=== PATIENT | male | born 1935 | race Caucasian/White ===

== ENCOUNTER 2019-06-19 07:32 | Inpatient (IN) | payer MEDICARE ==
[~2019-06-19] VITALS: Ht 175.3 cm; Wt 74.0 kg
[2019-06-19 07:53] LABS: BASOPHILS ABSOLUTE AUTO 0.05 K/mm3 (0.00-0.23); BASOPHILS PERCENT AUTO 1 % (0-2); EOSINOPHILS ABSOLUTE AUTO 0.28 K/mm3 (0.00-0.68); EOSINOPHILS PERCENT AUTO 4 % (0-6); Hematocrit 44.8 % (37.0-53.0); Hemoglobin 15.4 g/dL (13.5-17.5); IMMATURE GRAN ABSOLUTE AUTO 0.01 K/mm3 (0.00-0.10); IMMATURE GRAN PERCENT AUTO 0 % (0-1); LYMPHOCYTES ABSOLUTE AUTO 2.86 K/mm3 (0.84-5.20); LYMPHOCYTES PERCENT AUTO 38 % (21-46); MONOCYTES ABSOLUTE AUTO 0.56 K/mm3 (0.16-1.47); MONOCYTES PERCENT AUTO 7 % (4-13); Mean Corpuscular HGB 32.8 pg (26.0-34.0); Mean Corpuscular HGB Conc 34.4 g/dL (31.5-36.5); Mean Corpuscular Volume 96 fL (80-100); Mean Platelet Volume 9.9 fL (9.1-12.4); NEUTROPHILS ABSOLUTE AUTO 3.83 K/mm3 (1.96-9.15); NEUTROPHILS PERCENT AUTO 50 % (41-73); Platelet Count 202 K/mm3 (150-400); RDW Coefficient Variation 13.2 % (11.7-14.2); RDW Standard Deviation 46.5 fL (35.1-46.3); Red Blood Cell Count 4.69 M/mm3 (4.30-5.90); White Blood Cell Count 7.59 K/mm3 (4.00-11.30)
[2019-06-19] MEDS ORDERED: SINEMET 25-1001 EACH PO (07:59)
[2019-06-19] MEDS ORDERED: CEPH500 (08:00)
[2019-06-19] MEDS ORDERED: FINA5 (08:00)
[2019-06-19] MEDS ORDERED: CALCIUM 600 +1 EA11 (08:00)
[2019-06-19] MEDS ORDERED: Prinivil10 MG PO (08:00)
[2019-06-19 08:08] LABS: Alanine Aminotransfer (ALT/SGP 9 U/L (12-78); Albumin, Blood 3.8 g/dL (3.4-5.0); Albumin/Globulin Ratio 0.9 (0.8-1.8); Alk Phos 72 U/L (50-136); Anion Gap 9 mmol/L (6-16); Aspartate Aminotrans (AST/SGOT 30 U/L (12-37); Blood Urea Nitrogen 19 mg/dL (8-24); Bun/Creatinine Ratio 16.2 (12.0-20.0); CO2, Blood 25 mmol/L (21-32); CPK Creatine Kinase 62 U/L (39-308); Calcium, Blood 8.9 mg/dL (8.5-10.1); Chloride, Blood 104 mmol/L (98-108); Creatine Kinase MB 1.1 ng/mL (0.0-3.6); Creatine Kinase MB Index 1.8 (0.0-4.0); Creatinine, Blood 1.17 mg/dL (0.60-1.20); Globulin, Blood 4.3 g/dL (2.2-4.0); Glomerular Filtration Rate >60 (60-); Glucose, Blood 92 mg/dL (70-99); Potassium, Blood 3.4 mmol/L (3.5-5.5); Sodium, Blood 138 mmol/L (136-145); Total Protein, Blood 8.1 g/dL (6.4-8.2); Troponin I 0.017 ng/mL (0.000-0.040)
[2019-06-19 08:32] LABS: Source, Urine Clean Catch
[2019-06-19 08:44] LABS: Bilirubin, Urine Neg (Neg); Blood, Urine Neg (Neg); Glucose Qualitative, Urine Neg (Neg); Ketones, Urine Neg (Neg); Leukocyte Esterase, Urine 3+ (Neg); Nitrite, Urine Neg (Neg); Protein, Urine 2+ (Neg); Urobilinogen, Urine NORM (Normal)
[2019-06-19 09:03] LABS: Appearance, Urine Clear (Clear); Color, Urine Yellow (P-Yellow)
[2019-06-19 09:04] LABS: White Blood Cells, Urine TNTC /hpf (0-5)
[2019-06-19 09:05] LABS: Bacteria Many /hpf; Red Blood Cells, Urine Not Seen /hpf (0-2); Squamous Epithelial Cells Few /hpf (Few)
--- NOTE | 2019-06-19 11:25 | NUR ---
PATIENT ARRIVED TO ROOM PCU 12 VIA STRETCHER FROM ER AFTER THIS RN RECEIVED TELEPHONE REPORT FROM MIO RN, ER, MOVED FROM STRETCHER TO BED VIA SLIDER, PATIENT IS ACCOMPANIED BY , PATIENT HAS PARKINSONS DISEASE AND IS NOT ABLE TO MOVE UPPER AND LOWER EXTREMITIES, IS PRIMARY CAREGIVER AT THIS TIME, PATIENT WAS PLACED ON TELEMETRY, VSS, IV MAINTENANCE FLUIDS STARTED, PATIENT ALSO TOOK ORAL MEDICATION WELL WITH APPLESAUCE, SPEECH THERAPY IN TO DO SWALLOW EVALUATION, SPECIFIC INSTRUCTIONS POSTED ON WHITEBOARD IN ROOM, PATIENT IS ALERT AND ORIENTED AND ABLE TO FOLLOW INSTRUCTIONS AND ANSWER QUESTIONS APPROPRIATELY, BUT REPLIES ARE SLOW, LUNG SOUNDS CLEAR IN UPPER LOBES AND DIMINISHED IN LOWER AREAS, UPON ARRIVAL PATIENT'S HR WAS IN 30'S, REPORTS NORMAL HEART RATE IS IN 60'S, PATIENT AND WERE ORIENTED TO ROOM AND NEW ENVIRONMENT, PATIENT RECEIVED SPECIAL CALL LIGHT, GIVEN AND EXPLAINED, BOTH VERBALIZED UNDERSTANDING, CALL LIGHT IN REACH, WILL CONTINUE TO MONITOR.
--- NOTE | 2019-06-19 17:50 | NUR ---
SHIFT SUMMARY NOTE: NO ACUTE EVENTS DURING THIS SHIFT, PATIENT MOSTLY SLEEPING, AT BEDSIDE, PATIENT IS A FEEDER D/T PARKINSONS, SCD'S IN PLACE, FOR DETAILS SEE ADMISSION ASSESSMENT AND NURSES NOTES, CALL LIGHT IN REACH, WILL CONTINUE TO MONITOR AND GIVE REPORT TO ONCOMING NOC SHIFT.
--- NOTE | 2019-06-19 18:05 | NUR ---
SPECIAL ORDER JEWELER CALLED TO NOTIFY THIS RN THAT PATIENT IS IN SVT WITH HR OF 220'S, DR. KOWALSKI CALLED, ADENOSINE AND EKG ORDER OBTAINED, PATIENT WAS ABLE TO FOLLOW COMMAND TO BEAR DOWN AND CONVERTED BACK TO SINUS BRADYCARDIA IN 40'S-50'S, WILL CONTINUE TO MONITOR.
--- NOTE | 2019-06-19 23:08 | NUR ---
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 PATIENT ASYMPTOMATIC.
--- NOTE | 2019-06-20 | NUR ---
NOTIFIED DR. CRAWFORD OF PATIENT SECOND DEGREE TYPE ONE BLOCK. NO CARDIALOGY CONSULT AT THIS TIME. DOCTOR WILL ALLOW ROUNDING HOSPITIALIST TO DETERMINE IF NEEDED. NO ORDERS AT THIS TIME.
--- NOTE | 2019-06-20 05:45 | NUR ---
PATIENT SBP ABOVE 200. PATIENT WAS WANTING TO GET UP TO BATHROOM FOR BM AT 4 AM AND SBP ELEVATE >200. GOTTEN UP TO BATHROOM AND TAKEN BP AGAIN. PATIENT SBP CONTINUES TO BE ELEVATED. PATIENT WAS USTEADY ON FEET TO THE COMMODE TWO PERSON ASSIST. CALLED DR. WAGONER TO REPORT SBP. TAKEN ORDER FOR HYDRALIZINE 10MG Q6H PRN FOR SBP >160. NO FURTHER ORDERS TAKEN.
--- NOTE | 2019-06-20 06:36 | NUR ---
PATIENT HAS NOT SLEPT MUCH TONIGHT. PATIENT AT BEDSIDE AND ABLE TO USE CALL LIGHT FOR PATIENT. PATIENT HAS NOT BEEN ABLE TO USE WITHOUT ASSISTANCE THROUGH OUT THE NIGHT. PATIENT HAS BEEN SLIGHTLY ANXIOUS THIS MORNING, REPOSITIONED EVERY 2 HRS WITH PILLOWS FOR COMFORT.
--- NOTE | 2019-06-20 06:38 | NUR ---
PATIENT HAS ALSO HAD I&O CATH THROUGH OUT THE NIGHT.
--- NOTE | 2019-06-20 08:12 | NUR ---
NURSING PCU DAYSHIFT: Assumed care of pt at approx 0700. Alert, oriented to self and family only, able to follow small commands. Speech is slow though able to answer simple questions and engage in basic conversation. General weakness noted and tremors of UE's d/t hx of parkinsons, requires assistance for repositioning and ADL's. Tele in place, NSR w/first degree, no c/o CP/pressure, HTN prior to a.m. meds, no noted edema. L/S cta t/o w/dim bases, O2 sat upper 90's on RA, no noted cough. Abd moderately distended and firm which spouse states is normal, BT hyperactive, chronic urinary retention which requires I/O cath. PIV x1, NS infusing at 75cc/hr. No s/s of acute distress at this time. Spouse at bedside assisting pt w/thin liquids from cup. Addressed ST evaluation from previous day and educated on potential risk of not following ST recommendations. Spouse did not agree with evaluation, informed spouse and pt that ST would be contacted to meet in room in order to discuss spouse concerns, spouse verbalized understanding. PMD at bedside this a.m., new d/o received. Soft touch call light in reach, cont to monitor for any changes.
[2019-06-20 08:44] LABS: Anion Gap 7 mmol/L (6-16); Blood Urea Nitrogen 20 mg/dL (8-24); CO2, Blood 27 mmol/L (21-32); Calcium, Blood 8.9 mg/dL (8.5-10.1); Chloride, Blood 106 mmol/L (98-108); Creatinine, Blood 1.11 mg/dL (0.60-1.20); Glomerular Filtration Rate >60 (60-); Glucose, Blood 81 mg/dL (70-99); Magnesium, Blood 2.8 mg/dL (1.6-2.4); Potassium, Blood 3.6 mmol/L (3.5-5.5); Sodium, Blood 140 mmol/L (136-145)
--- NOTE | 2019-06-20 10:33 | NUR ---
Patient is lying in bed and alert with Patient's spouse, Akanksha, bedside. Akanksha explains about patient's medical issues both past and present. She also tells about the family unit complications, their eddie journey and the peace they both have about patient "going to [facility]." I listen empathically, provide a Bible, quote inspirational Bible verses and provide pastoral automobile travel club counselor, companionship and prayer. Patient and Akanksha respond well and display evidence of a refreshed eddie and hope. Akanksha voices gratitude for my visit. I will continue to be available to patient and family.
--- NOTE | 2019-06-20 12:54 | NUR ---
Initial Visit: Palliative Care for Advanced Care Planning. Pt is A&Ox1 and appears comfortable at this time. When asked about pain Pt engages in nonsensical conversation. No S/S of distress at this time. Pt's Akanksha is present during visit. Engaged in therapeutic discussion regarding advanced care planning. Akanksha reports Pt lives at home with her and is his primary caregiver. Akanksha reports Pt is chair bound and on occasion Pt can ambulate a short distance by shuffling his feet. Akanksha reports Pt is a one person transfer. Pt requires assistance with bathing, dressing, and feeding. Akanksha inserts catheters to drain Pt's bladder. Attempted to educate Akanksha on disease process and trajectory. Akanksha states "I know all obout the process and I keep in touch with the DC nurse in [place]". Akanksha reports the plan is for Pt to discharge to the DC where he will gain enough strength to come home. Akanksha's level of understanding is questionable. Education re-enforcement of disease process and discharge plan will be needed. Discussed case with bedside nurse Mignon prior to visit and she expressed concerns with Wifes understanding as well. Will collaborate with raw material planner of concerns. Palliative Care will remain available.
--- NOTE | 2019-06-20 14:30 | NUR ---
Late Entry from previous Initial Visit note. Also discussed hospice as an option for end of life care. Pt's Akanksha states "He is not ready yet".
--- NOTE | 2019-06-20 15:56 | NUR ---
Received report from palliative care truck engine technician Johanna that after visiting with Pt and family hospice has been chosen. Arrived to Pt's room and he is resting in bed with his eyes closed. Pt appears comfortable with no S/S of distress at this time. Engaged in discusion regarding decision for hospice. Akanksha confirms goals are hospice. Provided choices of hospice agencies and Akanksha choosed [facility]. Discussed equipment that will need to be provided. Akanksha reports no other concerns at this time. Spoke with resident care spec Farrah and reported choice of hospice agency. Reported need for hospital bed, bedside table, and bedside commode. Palliative Care will remain available.
--- NOTE | 2019-06-20 16:03 | NUR ---
Late Entry PPS 30% Karnofsky 30% FAST score 7C ADL's 03/21
--- NOTE | 2019-06-20 16:45 | NUR ---
Spiritual Care intital note: Aske by Palliative Care RN to meet with spouse to increase her understanding of pt's dx. Failitated conversation @ her understanding of Cliff' disease process and provided gentle education according to PC. Akanksha agreed that pt is nearing end-of-life and states that he wants to be home when he passes. She had some concerns about physically caring for Cliff as he grows weaker. Advised she rally family for physical and emotional support. Also educated about hospice services/support. Akanksha and I had an easy rapport and she hugged me at conclusion of visit. She was tearful, but reported peace with POC. This couple's eddie provides peace with . I will remain available.
--- NOTE | 2019-06-20 17:29 | NUR ---
NURSING PCU DAYSHIFT SUMMARY: Spouse at bedside t/o majority of shift. ST met w/pt and s/o this a.m., provided additional education regarding swallow precautions, spouse verbalized and demonstrated understanding. Care management, palliative care, and pastoral care at bedside several times t/o shift to discuss plan of care w/spouse and pt. Determined that pt would like to be discharged home on hospice once acute medical needs are addressed. Spouse left for home this afternoon to shower and take care of personal needs. Pt became anxious once spouse left room. This RN sat at bedside for approx 30-45 min as pt became more irritated. Asked, "Where is my " while pulling at lines and tubing. Attempted to redirect pt and provide reassurance. Pt became agitated and attempted to harm this RN, staff assist called. Within an hour pt calmed and became tearful, apologizing for behavior. Discussed pt's changes w/spouse once she returned to bedside. No s/s of acute distress at this time. Pt appears to be resting comfortably while s/o is assisting w/supper. Call light remains in reach of spouse w/soft touch call system in reach of pt. Pt and spouse deny any current needs, cont to monitor until rpt is given to NOC RN.
[2019-06-21 04:09] LABS: Anion Gap 7 mmol/L (6-16); Blood Urea Nitrogen 17 mg/dL (8-24); Bun/Creatinine Ratio 17.5 (12.0-20.0); CO2, Blood 26 mmol/L (21-32); Calcium, Blood 9.1 mg/dL (8.5-10.1); Chloride, Blood 106 mmol/L (98-108); Creatinine, Blood 0.97 mg/dL (0.60-1.20); Glomerular Filtration Rate >60 (60-); Glucose, Blood 108 mg/dL (70-99); Potassium, Blood 3.7 mmol/L (3.5-5.5); Sodium, Blood 139 mmol/L (136-145)
--- NOTE | 2019-06-21 04:27 | NUR ---
PCU NOC SHIFT SUMMARY PATIENT REMAIN STONE FACE WITH NO TRACKING FOR THE MAJORITY OF THE SHIFT. PATIENT MOSTLY NONE VERBAL WITH OCCASSIONALLY ANSWERING QUESTIONS AT RANDOM. PATIENT REMAINED ON ROOM AIR T/O THE SHIFT IN SINUS TO SINUS MONTY WITH A FIRST DEGREE - CURRENTLY AT 70 BEATS PER MINUTE. PATIENT MEDICATED PER WIFES REQUEST AND VERBALIZING WANTING PAIN MEDICATIONS - BUT SOURCE OF DISCOMFORT IS UNKNOWN. PATIENTS ABD REMAINS DISTENDED. PATIENT HAD A LOOSE BOWEL MOVEMENT THIS SHIFT. NO FURTHER ACUTE CHANGES NOTED. WILL CONTINUE TO MONITOR AND REPORT TO PRIMARY RN.
--- NOTE | 2019-06-21 08:00 | NUR ---
pt laying in bed awake, very flat affect, he is cooperative with care, follows commands as best he can in room, he answers yes/no, otherwise is quiet, he denies pain, lungs are clear t/o, resp even and unlabored, no cough noted, hrr, tele in place running sr with 1st degree, and periodically goes into [facility] per general maintenance technician, see strip, no edema noted, ppp+1, cap refill <3 sec, vs stable, afebrile, iv site to right fa, site is clear and patent, btx4, abd round somewhat firm, is having loose stools, attends in place, takes po meds whole in applesauce,armstrong cath in place draining yellow urine, skin has a area to right buttock that is looking irritated, placed a dressing for protection, has a tremor off and on, is very stiff, states he can get up to chair with two person to assist, devika, soft touch call light in reach.
--- NOTE | 2019-06-21 10:54 | NUR ---
Pt visit this AM. Pt is resting in bed with his eyes closed. He appears comfortable with no S/S of distress at this time. Pt's Iris and many other family members present during visit. Discussed discharge plan and requests for staff to get Pt out of bed today to help her determine if she will be able to get him out of bed at home. Akanksha reports no other concerns. Spoke with bedside nurse Brett and discussed case. Relayed 's request for Pt getting out of bed. Brett reports an order for PT would be beneficial to help determine appropriateness and safety education from PT. Brett also expresses concerns regarding Akanksha's ability to care for Pt as disease process takes its coarse. Spoke with [facility] Phoebe and discussed case. Relayed bedside nurse's concerns. Phoebe reports [facility] and [facility]. Called and spoke with Dr Beyer and relayed request for PT to evaluate and educate family on mobility safety. Dr Beyer will place PT order. Palliative Care will remain available.
--- NOTE | 2019-06-21 12:58 | NUR ---
PT SLEPT MOST OF THE MORNING, LOTS OF FAMILY IN TO SEE HIM. WILL BE DISCHARGED TODAY AFTER PT WORKS WITH HIM. CALL LIGHT IN REACH.
--- NOTE | 2019-06-21 18:21 | NUR ---
Lyly.Berta. WORKED WITH PT TODAY AND FELT THAT PT WILL NEED MORE HELP THAN HIS IS CAPABLE OF FOR TRANSFERING, SPOKE WITH AND SHE IS ADAMANT THAT SHE IS CAPABLE OF CARING FOR HIM BY HERSELF AND THEY WILL MANAGE. SHE EXPLAINED HER PLAN, AND IS CONVINCED THAT HE WILL BE BETTER TOMORROW AND SHE CAN TRANSFER HIM. EXPRESSED MY CONCERN THAT HE ISN'T FUNCTIONAL HE WAS BEFORE HE WAS BROUGHT IN TO HOSP AND WILL BE HEAVIER TO TRANSFER, AND SHE HAS POTENTIAL OF HURTING HERSELF AND HIM IF HE FALLS. SHE BELIEVES THIS WILL NOT HAPPEN AND IF IT DOES SHE BELIEVES THAT SHE WILL BE ASSISTED BY HER MERE. GRAND DAUGHTER IN ROOM WITH THIS CONVERSATION. HER SON CAME IN TO SEE HIM, BRIEFLY SPOKE WITH HIM ABOUT CONCERNS, HE STATES THE FAMILY IS CONCERNED WELL, AND IS WILLING TO COME IN TOMORROW WHEN P.T. COMES IN TO WORK WITH HIM AND ALLOW HIS MOM TO DO THE TRANSFER HERSELF, WHICH WILL DEMONSTRATE HER ABILITY TO MANAGE HIM. PT DID BECOME SOMEWHAT AGGITATED THIS EVENING WHEN HIS WAS OUT OF THE ROOM, CALL LIGHT IN REACH.
--- NOTE | 2019-06-22 02:53 | NUR ---
NOC SHIFT NOTE PATIENT RESTFUL AND CALM WITH FAMILY AT BEDSIDE WITH SOME WORDS AND ANSWERS TO QUESTIONS SPOKEN BY PATIENT UNTIL APPROX 0000. AT APPROX 0000 PATIENT BECAME RESTLESS AND STARTED TO DISROBE. HELD STAFF AND WIFES HAND TO THE POINT OF PAIN AND REQUIRED ASSISTANCE FROM OTHER STAFF TO LOOSEN HIS CAPPING MACHINE OPERATOR. PATIENTS SON CAME IN AND WAS ABLE TO CALM HIM. PATIENT WAS ABLE TO SLEEP AT APPROX 0230.
--- NOTE | 2019-06-22 04:49 | NUR ---
PCU NOC SHIFT SUMMARY PATIENT REMAINS STONE FACE (PARKINSON END STAGE). PATIENT IS NONVERBAL WITH SOME WORDS AT TIMES AND SOME NONSENSICAL SPEACH WITH PERIODS OF NONVERBAL AND/OR MOANING/HUMMING. PATIENTS RESP E/U AT REST ON ROOM AIR. HEART RATE IS IN THE 50'S MONTY WITH RHYTHM BETWEEN TYPE 1 AND TYPE 2 BLOCK. PATIENTS AND GRANDDAUGHTER SPEND THE NIGHT WITH HIM. PATIENT MEDICATION T/O SHIFT FOR PAIN DUE TO FROWN/GRIMACE PER EMAR. NO ACUTE CHANGES NOTED. WILL CONTINUE TO MONITOR AND REPORT TO ALYSIA RN.
--- NOTE | 2019-06-22 06:55 | NUR ---
PATIENT COMBATIVE PATIENT YELLING AT FAMILY MEMBERS INCLUDING OF 61 YEARS NONSENSICALLY. UNABLE TO GET CLOSE TO PATIENT HE IS THROWING PUNCHES AND KICKS AT NURSING STAFF AND FAMILY. NOTIFIED CANOE INSPECTOR - AWAITING ORDERS FROM .
--- NOTE | 2019-06-22 06:58 | NUR ---
PULLED CATHETER PATIENTS DAN CATH PULLED BECAUSE PATIENT WAS ABOUT TO PULL IT OUT HIMSELF.
--- NOTE | 2019-06-22 07:51 | NUR ---
ONCOMING NOTE REPORT RECEIVED FROM BLAKE WALSH. BEDSIDE ROUNDING DONE. PT AGITATED, NOT ALLOWING STAFF OR FAMILY NEAR. PT REMAINS IN BED WITH SIDE RAILS RAISED, BUT RAISES HAND TO STAFF AND FAMILY IF THEY APPROACH. UNABLE TO OBTAIN VS AT THIS TIME. PT WITH SOILED ATTENDS, NOT ALLOWING ANY CARE AT THIS TIME. PER FUNDRAISING OFFICER RN PT ATTEMPTED TO PULL DAN CATH OUT SO IT WAS D/C. PER FUNDRAISING OFFICER RN PT MEDICATED WITH HALDOL PER ORDERS, PLAN TO WAIT FOR THIS TO TAKE EFFECT. FAMILY PRESENT AT BEDSIDE. NO NEEDS AT THIS TIME. CALL LIGHT IN REACH. WILL CONT TO MONITOR PT.
--- NOTE | 2019-06-22 10:34 | NUR ---
UPDATE NOTE PT RESTING WITH EYES CLOSED, SNORING. NO S/SX DISTRESS NOTED. PT DID NOT WAKE WWHEN VS CHECKED, HOLDING MORNING MEDICATIONS UNTIL PT AWAKE. PLAN TO PLACE DAN CATH WHEN PT AWAKE. CHARGE NURSE AWARE OF PLAN. PT'S GRANDDAUGHTER RETURNED TO BEDSIDE. CALL LIGHT IN REACH. WILL CONT TO MONITOR PT.
--- NOTE | 2019-06-22 10:45 | NUR ---
ABX HOLD CALL TO PHARMACY NOTIFYING THEM THAT KEFLEX HELD D/T PT SLEEPING AND MAY NEED TO RETIME FIRST DOSE. CHERELLE TO RETURN CALL.
--- NOTE | 2019-06-22 12:12 | NUR ---
UPDATE PT REMAINS RESTING SOUNDLY WITH EYES CLOSED. PT NOT APPROPRIATE TO TAKE ORAL MEDICATIONS AT THIS TIME, PLAN TO TRY HAVING PT SAFELY TAKE ORAL MEDICATIONS WHEN HE AWAKENS. PT'S AND GRANDDAUGHTER REMAIN AT BEDSIDE WITH ADDITIONAL FAMILY ROTATING IN AND OUT PERIODICALLY. NO NEEDS AT THIS TIME. CALL LIGHT IN REACH. WILL CONT TO MONITOR PT.
--- NOTE | 2019-06-22 13:03 | NUR ---
REPORT OFF REPORT GIVEN TO BLAKE CORONA. CHLOE TO ASSUME CARE OF PT AT THIS TIME.
--- NOTE | 2019-06-22 13:16 | NUR ---
REPORT RECIEVED FROM BLAKE LERNER. PT SLEEPING AT THIS TIME, DAYAS
--- NOTE | 2019-06-22 17:49 | NUR ---
SUMMARY: SEE PREVIOUS NOTES, NO ACUTE CHANGE SINCE RECIEVING REPORT. PT HAS SLEPT THE MAJORITY OF THE DAY AND IS MORE AWAKE CURRENTLY. OPENING EYES AND RESPONDING TO YES/NO QUESTIONS, FOLLOWS SOME DIRECTIONS. HAS NOT BEEN COMBATIVE. ABLE TO GIVE PT MISSED MEDICATIONS FROM THIS MORNING WHOLE IN APPLESAUCE. VSS AT THIS TIME, PT IS ALERT AND CONFUSED, HISTORY OF PARKINSONS. FAMILY AT BEDSIDE. Q2 TURNS COMPLETED, PT HAS HAD BM'S X2. TELE WNL. BED ALARM ON. CALL LIGHT IN REACH, NO ACUTE SAFETY CONCERNS AT THIS TIME
--- NOTE | 2019-06-22 18:21 | NUR ---
SPOKE WITH DR. KOWALSKI AT THIS TIME CONCERNING PT BP OF 88/54. ORDER TO CONTINUE TO MONITOR AND DISCONTINUE 20MG LISINOPRIL. WILL CTM AND MAKE NOC RN AWARE
--- NOTE | 2019-06-23 02:32 | NUR ---
AGITATION 0200 PT BECOMESD AGITATED. PULLING AT TELE CORDS, ATTEMPTING TO PULL DAN OUT. THIS RN TO ROOM, CALLS FOR HELP PT BEGINS TO TRY TO HIT/KICK THIS RN AND FIFIGHTER IN ROOM. MEDICATED WITH HALDOL ORDERED. PT STILL PRESENTS SOMEWHAT RESTLESS IN BED AT THIS TIME. IS BEGINNING TO CALM DOWN THOUGH. WILL CONTINUE TO MONITOR THIS AND POSSIBLY CALL TO NOTIFY
--- NOTE | 2019-06-23 05:46 | NUR ---
END OF SHIFT SUMMARY PT HAS GONE FROM BEING ORIENTED ENOUGHT TO FOLLOW SIMPLE DIRECTIONS WITH FAMILY AND SWALLOWING PILLS TO BEING COMBATIVE AND REQUIRING MEDICATION FOR AGITATION. SEE NOTE REGARDING AGITATION. VSS THIS SHIFT. PT HAS BEEN RESTING QUIETLY SINCE INSTANCE OF AGITATION WITH THE ADMINISTRATION OF 2MG HALDOL. PT'S GRANDDAUGHTER HAS BEEN RESTING IN ROOM T/O THE NIGHT. FAMILY LEFT EARLIER IN THE SHIFT BUT PLAN TO RETURN TODAY. PT BEING TURNED AND CLEANED NEEDED. ORAL CARE GIVEN. WILL CONTINUE TO MONITOR PT UNTIL SHIFT CHANGE.
--- NOTE | 2019-06-23 09:00 | NUR ---
ASSUMED CARE AT APPROXIMATELY 0730 PT ALERT. PT RESPONDS TO VERBAL STIMULI AT THIS TIME. VS STABLE. DR. DALLAS IN AND HAD LONG DISCUSSION WITH FAMILY ABOUT COMFORT CARE. FAMILY AGREES TO COMFORT CARE ORDERS. TELEMETRY REMOVED. PT BEING REPOSITIONED Q2H AND ATTENDS CHANGED NEEDED. PT SHOWS NO SIGNS OF PAIN OR DISCOMFORT AT THIS TIME. WILL CONTINUE TO MONITOR AND PROVIDE COMFORT MEASURES.
--- NOTE | 2019-06-23 12:36 | NUR ---
REPORT CALLED TO MEDICAL FLOOR RN. PT TO BE TAKEN UP BY BED.
--- NOTE | 2019-06-23 13:04 | NUR ---
pt resting family at bedside.
--- NOTE | 2019-06-23 15:12 | NUR ---
PT ARRIVED TO THE MEDICAL FLOOR FROM THE PCU ALERT, FLAT AFFECT, MULTIPLE FAMILY AT THE BEDSIDE, PT AND FAMILY ORIENTED TO THE ROOM CALL SYSTEM
--- NOTE | 2019-06-23 15:14 | NUR ---
PT APPEARS COMFORTABLE, MULTIPLE FAMILY AT THE BEDSIDE
--- NOTE | 2019-06-23 16:16 | NUR ---
PT CLEANED AND CHANGED, REPOSITIONED, APPEARS COMFORTABLE AT THIS TIME APPEARS TO BE BREATHING EASILY ON RA AT THIS TIME, MULTIPLE FAMILY WAS IN TO VISIT WITH THE FAMILY, CALL LIGHT IN REACH
--- NOTE | 2019-06-24 03:33 | NUR ---
SHIFT SUMMARY PT ADMITTED FOR SYNCOPE. DNR CC. PUREE DIET, NO MIXED CONSISTENCIES, ASPIRATION PRECAUTIONS, NO STRAW, LIQUIDS BY SPOON ONLY NECTOR THICK, MAGIC CUP, BUI, WITH MEALS, PT IS A FEEDER. PT HAS A DAN IN PLACE, STRAIGHT CATH PT AT HOME PRIOR. MAY LEAV IV OUT IF UNABLE TO RESTART. DC TO HOSPICE WHEN NEXT AVAILABLE-ORDER IN CHART. TAKES MEDICATIONS WHOLE WITH APPLESAUCE 1 AT A TIME FOLLOWED BY SPOONS OF NECTOR THICK WATER, PTS , SANDEEP AT BEDSIDE AND ASSISTS. IV TO L FA. IT DOES NOT APPEAR THAT PT HAS TRANSFERED OUT OF BED SINCE 06/20/19 PER . SANDEEP WOULD LIKE PT TO GET ON TOILET OR BSC TO BE ABLE TO HAVE BM AND/OR PASS GAS. PT APPEARS TO HAVE VERY SUPPORTIVE FAMILY, MULTIPLE MEMBERS IN ROOM THIS NIGHT. FAMILY IS VERY PLEASENT AND THANKFUL.
--- NOTE | 2019-06-24 03:55 | NUR ---
family member/ the pt's , requested the nurse and i to not wake up pt to reposition thoughout the night, at 0300 the pt had pain med request, and thought about using the bedside commode. pt was floating on 4 pillows on both sides during the shift. said he seemed very comfortable.
--- NOTE | 2019-06-24 05:51 | NUR ---
RESTRAINT APPLICATION THIS NURSE NOTIFIED BY PTS THAT PT BECOMING VERY AGITATED STATING THAT LIED TO PT. PT VERY COMBATIVE ATTEMPTING TO HIT AND KICK STAFF AND . PT ALSO ATTEMPTING TO PULL OUT CATHETER. UNABLE TO REDIRECT PT. CALL TO HOSPITALIST TO OBTAIN ORDER FOR SOFT RESTRAINTS X4 AND ATIVAN 1-3 MG Q 30 MINUTES PRN.
--- NOTE | 2019-06-24 06:27 | NUR ---
HALDOL IT APPEARS THAT HALDOL INCREASES PTS AGITATION RATHER THEN DECREASING. FAMILY HAS REQUESTED THAT HALDOL NOT BE ADMINISTERED AND GIVE LORAZEPAM INSTEAD. FAMILY HAS ALSO REQUESTED THAT PT BE PLACED ON THE BSC TODAY TO ATTEMPT TO HAVE A BOWL MOVEMENT AND PASS MAHIN PTS ABD IS EXTREMELY DISTENDED.
--- NOTE | 2019-06-24 06:45 | NUR ---
RESTRAINT REMOVAL PT CALM AND SLEEPING FOLLOWING ADMINISTRATION OF ATIVAN. RESTRAINTS REMOVED AND CATHETER HIDDEN FROM PT. AT BEDSIDE AND HAS AGREED TO INFORM STAFF IF PT BEGINS TO BECOME AGITATED AGAIN. WILL CONTINUE TO MONITOR.
--- NOTE | 2019-06-24 11:03 | NUR ---
PT WITH INCREASED ANXIETY BEHAVIOR, GRABBING AT GOWN, DAN, AND STAFF. ATIVAN 1MG IV GIVEN, DULCOLAX SUPPOSITORY GIVEN. BED BATH INCLUDING CATH CARE AND LINEN CHANGE COMPLETED. AND FAMILY AT BEDSIDE AND AGREED WITH PLAN OF CARE. PT IS RESTING COMFORTABLY AT THIS TIME WITH FAMILY AT BEDSIDE.
--- NOTE | 2019-06-24 14:43 | NUR ---
Patient is lying in bed and minimally responsive, with close to 10 family members present in the room. They shared with me their concerns about transitioning patient to a SNF. They have concerns about cost, about location (not to far from spouse, Akanksha's home) and even about the patient lingering on and on in this state of aggitation, pain and abusive statements (intermingled with moments of clarity, kindness and eddie). The whole family gathered around as I led in prayer. Akanksha is tired and understandably tearful. I provided emotional support, a calming presence and pastoral career counselor.
--- NOTE | 2019-06-24 18:37 | NUR ---
SHIFT SUMMARY. PT ON COMFORT MEASURES. PT LETHARGIC MOST OF THE SHIFT, DIFFICULT TO AROUSE AFTER IV ATIVAN GIVEN IN THE AM SECONDARY TO AGITATION. PT BECAME MORE ALERT THIS AFTERNOON AND WAS ABLE TO EAT DINNER. NO S/SX OF DISCOMFORT. FAMILY INCLUDING , CHILDREN AND GRANDCHILDREN AT BEDSIDE MOST OF THE SHIFT AND HAVE AGREED WITH PLAN OF CARE. PT WITH DISTENDED ABD THIS AM, LIQUID CLEAR STOOL IN BRIEF, PRN DULCOLAX GIVEN, AFTER INSERTION A LARGE AMOUNT OF GAS WAS EXPELLED AND ABD BECAME SOFT IMMEDIATLY. FAMILY IS REQUESTING THAT PT BE D/C'D TO [facility] WITH HOSPICE SERVICES. CASE MANAGEMENT INVOLVED AND VISITED WITH PT AND FAMILY TODAY.
--- NOTE | 2019-06-24 22:59 | NUR ---
pt has PArkinsons and dementia, of 62 years and other Family being educated. verbalized understanding
--- NOTE | 2019-06-25 04:00 | NUR ---
PT was resting comfortable then awake and very aggitated attempting to kick staff, squeeze hand very hard and not let go. Roxinol 20 mg sl given with no helpful effect. 1 mg IV ativan given and awaiting effect. PT is Elizabeth, 62 years. home tonight after assisting wwith adls feeding cares until HS. Granddtr in and supportive , PT finally resting again
--- NOTE | 2019-06-25 09:51 | NUR ---
Pt visit this AM. Pt is resting in bed with his eyes closed. He appears comfortable with no S/S of distress at this time. Family requests to conference in [place] outside of Pt room. Discussed plan including first availabilty of [facility] to admit on services. Family requests brochures from all 3 hospice angencies incase they decide to change angency. Gave brochures for each hospice angency. No other concerns reported at this time. Spoke with caremanager Justyna prior to Pt visit and discussed plan. She is in the process of determining [facility] requirements for Pt to be placed at [facility] with hospice. Palliative Care will remain available.
--- NOTE | 2019-06-25 12:24 | NUR ---
FAMILY AT BEDSIDE THROUGH DAY. WAS ASSISTED TO COMMODE WITH 2 PERSON MAX ASSIST. WAS ABLE TO BEAR WEIGHT BUT WASN'T ABLE TO TAKE A STEP. WHEN HE STOOD UP FROM COMMODE WAS ABLE TO STAY IN UPRIGHT POSITION BUT WOULD SAG AT THE KNEES. WAS HOLDING ONTO A WALKER WHILE BEING CLEANED AND ATTEND PLACED. UP TO RECLINER AND CURRENTLY ASSISTING HIM WITH EATING.
--- NOTE | 2019-06-25 15:52 | NUR ---
Patient is sitting on a chair with eyes closed and spouse, Akanksha, present. Akanksha shares with me about zoran visit from the staff member at the [facility] who came to interview them for placement in their hospice facility. Akanksha expressed that she hopes that works out. Patient perked up a bit and so I talked with patient and provided prayer for him and the family. Other family members arrived and are very encouraging to Akanksha and the patient. Patient's room got full and I left them top visit. I will continue to remain available to patient and family.
--- NOTE | 2019-06-25 18:10 | NUR ---
SHIFT SUMMARY FAMILY AT BEDSIDE THROUGHOUT DAY WITH GRANDDAUGHTER STAYING THE NIGHT LAST NIGHT. PT MINIMALLY RESPONSIVE THIS MORNING BUT HAS INCREASED IN HIS RESPONSIVENESS THROUGH THE DAY. WAS TELLING HE NEEDED TO GO TO BATHROOM. 2 PERSON MAX ASSIST UP TO COMMODE WITH LOTS OF GAS PASSED AND SMALL AMOUNT OF LIQUID STOOL EXPELLED. THIS HAPPENDED AGAIN LATE THIS AFTERNOON WITH PT ABLE TO STAND FOR A SHORT TIME USING [facility] FOR CLEANING AND TRANSFERRING. REPORTED HEADACHE THAT WAS TREATED WITH TYLENOL WITH HELP. ASSISTING PT WITH EATING. UP TO RECLINER TWICE TODAY. [facility] HERE TO EVALUATE PT. PLANS TO DISCHARGE TO FACILITY TOMORROW ON HOSPICE AT THIS TIME. EXPRESSLY CONCERNED ABOUT SINEMET GIVEN AT INCORRECT TIMES. CORRECTED TIMES TO HOME TIMES.
--- NOTE | 2019-06-25 19:37 | NUR ---
up in chair in room, mult family present and supportive. @ max assist to get back to bed. Benedict cath secured and iv secured. . Attempts to communicate speech soft garbled. Planning to dc on Hospice as soon as possible.
--- NOTE | 2019-06-26 00:15 | NUR ---
comfort measures continue for Elderly PT with advanced Parkinsons who is [employer] . He has periods of anxiety and can get agressive. He has IV saline lock which is helpful to give ativan if he becomes agitated. Ativan 1 mg iv given at HS with mild helpful effect. Family attentive and someone stays at bedside and they assist with oral intake of pureed diet and nectar thick fluids. Medicated for headache pain with extra strenght tylenol and roxinol 20 mg sl with helpful effect.
--- NOTE | 2019-06-26 15:06 | NUR ---
Patient is lying in bed and minimally responsive. Akanksha, Patient's spouse, tells me he slept well and has not eaten or had much to drink all day and that they plan to transfer [facility] to [facility]. I provided a calming presence and companionship and will continue to remain available to patient and family.
--- NOTE | 2019-06-26 17:24 | NUR ---
SHIFT SUMMARY PT SLEEPING THIS MORNING WITH BREATHING SHALLOWLY. FAMILY AT BEDSIDE ALL DAY. HAD AN EPISODE OF AGITATION THIS AFTERNOON AFTER GETTING UP TO BEDSIDE COMMODE AND HAVING A SLUDGE LIKE BM. ROXONAL GIVEN AND FED HIM SOME APPLESAUCE. DID CALM DOWN FOR A BIT BUT THEN BECAME ANXIOUS AGAIN AND ATIVAN GIVEN AND CALM NOW WITH FAMILY REMAINING IN ROOM.
--- NOTE | 2019-06-27 07:26 | NUR ---
SHIFT SUMMARY PT ON CC. VERY SLEEPY DROWSY. ABLE TO TAKE MEDS CRUSHED IN APPLESAUCE VERY SLOWLY. FAMILY AT BEDSIDE T/O NIGHT. ROXANOL AND ATIVAN GIVEN FOR RESTLESSNESS. HE WAS ABLE TO SLEEP T/O NIGHT AFTER THAT. FAMILY DID NOT WANT HIM TURNED OR DISTURBED T/O NIGHT. NO BM.
--- NOTE | 2019-06-27 07:41 | NUR ---
FAMILY REFUSED FOR PATIENT TO BE REPOSITIONED WHILE SLEEPING.
[2019-06-27] MEDS ORDERED: ARTIFICIAL TEAR30 ML BOTHEYES (07:54)
[2019-06-27] MEDS ORDERED: ATROPINE 0.01%-10 ML SL (07:54)
[2019-06-27] MEDS ORDERED: BISA10S PR (07:55)
[2019-06-27] MEDS ORDERED: LORA1 PO (07:56)
[2019-06-27] MEDS ORDERED: MORP20L SL (07:56)
[2019-06-27] MEDS ORDERED: Carbidopa-Levo1 EACH PO (07:58)
--- NOTE | 2019-06-27 09:30 | NUR ---
DISCHARED TO [facility] [place]. REPORT CALLED TO [place]. FAMILY AT BEDSIDE PRIOR TO TRANSFER. SINEMET GIVEN WELL ROXONAL FOR THE TRIP. DAN REMAINS IN PLACE. TO CURB VIA GURJAMIN WITH KAYLYN.
== END 2019-06-27 09:00 | disposition hospice, home (50) | DRG 57 ==
LOC: DELPENDDIS → ER 07:32 → PCU 10:04 → MEDS 06-23 13:20 → ENPENDDIS 06-26 09:53 → MEDS 06-27 09:00
PROVIDERS: Emergency Medicine; ADMIT Internal Medicine
DX: G20 Parkinson's disease (principal); N39.0 Urinary tract infection, site not specified; I47.1 Supraventricular tachycardia; I48.91 Unspecified atrial fibrillation; Z51.5 Encounter for palliative care; I10 Essential (primary) hypertension; N31.9 Neuromuscular dysfunction of bladder, unspecified; Z66 Do not resuscitate; R00.1 Bradycardia, unspecified; Z74.09 Other reduced mobility
CPT/HCPCS: 36415; 51701; 51702; 51703; 71045; 80048; 80053; 81001; 82550; 82553; 83735; 84484; 85025; 87077; 87086; 87186; 92526; 92610; 93005; 93010; 96365-59; 97162; 97530; 99285-25; J0360; J0696; J1630; J2060; J3475; J3480; J7030; J7120